=== PATIENT | male | born 2000 | race Caucasian/White ===

== ENCOUNTER 2022-12-25 17:47 | Emergency (ER) | payer BC, SELFPAY ==
--- NOTE | ~2022-12-25 | XR_ITS ---
EXAMINATION: XR FOOT, LEFT CLINICAL INFORMATION: Pain, injury. COMPARISON: None available. TECHNIQUE: AP, lateral, and oblique views of the left foot. FINDINGS: No acute fractures or subluxation. No significant soft tissue abnormality. No unexpected radiopaque foreign bodies. XR/XR foot LT min 3V IMPRESSION: No acute fractures or subluxation.
[2022-12-25 18:06] VITALS: BP 124/70; PULSE 56; RESP 18; TEMP 36.3; O2SAT 97; BMI 28.2
--- NOTE | 2022-12-25 18:06 | ED_ITS ---
HPI - Extremity Injury (Lower) General Chief Complaint: Extremity Injury, Lower Stated Complaint: L foot inj Time Seen by Provider: 12/25/22 19:05 Source: patient and RN notes reviewed Mode of arrival: ambulatory Limitations: no limitations History of Present Illness HPI Narrative: 22 year old male presenting with a chief complaint of left foot pain for the past 1.5 weeks after dropping a skim board on it. He denies difficulty with ambulation but endorses increased pain today while walking. He reports intermittent swelling to the left foot. He denies icing the injury or taking any Tylenol or Ibuprofen for the pain Related Data Allergies Allergy/AdvReac Type Severity Reaction Status Date / Time cat dander Allergy Itching Verified 12/25/22 18:05 Review of Systems Review of Systems: Yes all other systems are reviewed and are negative Constitutional: Constitutional: Reports no additional constitutional complaints Musculoskeletal: Musculoskeletal: Denies joint swelling and Denies limited range of motion Comments: Left foot pain PMFSH Social History Social History Alcohol intake: current Alcohol intake frequency: holidays/special occasions only Smoked in Last 30 Days: No Use of substances other than those prescribed or required for medical reasons: No Advance Directives: No Advance Directives Information Provided: Yes Physical Exam Vital Signs: Vital Signs: Last Vital Signs Temp 97.4 F 12/25/22 18:06 Pulse 56 12/25/22 18:06 Resp 18 12/25/22 18:06 BP 124/70 12/25/22 18:06 Pulse Ox 97 12/25/22 18:06 O2 Del Method Room Air 12/25/22 18:06 BMI result Body Mass Index 28.2 Const: General: healthy appearing, comfortable, no acute distress, alert and awake Nutritional Appearance: well nourished Orientation/consciousness: patient oriented x3 HEENT: Head: Yes normocephalic and Yes atraumatic Eyes: Eyelids: Yes eyelids normal Conjunctivae: conjunctivae normal Sclerae: sclerae normal Corneas: corneas normal Pupils: Equal, round and reactive pupils present EOM: EOMs intact bilaterally Neck: Neck: Yes full ROM Resp: Effort & Inspection: normal respiratory effort, able to speak in complete sentences and not labored Skin: General skin exam: no rashes or lesions noted and elasticity normal Neuro: General: patient oriented x3 Cranial nerves: Yes Equal, round and reactive pupils present and Yes Bilaterally intact EOM present Cognition (Neuro): normal cognition Extrem: Left lower extremity: normal to inspection, full ROM and foot (slight tenderness to palpation of the dorsal aspect of the left foot) Details: normal to inspection, tenderness, toes with normal ROM and no edema; no ecchymosis; no cyanosis and no edema Course Course Course Narrative: RME - 22 y/o male presents to the ER for evaluation of left foot pain that flared up today after an injury 1 week ago. he states he dropped a skim board on it but the pain was not severe at the time. +swelling, no wounds. ambulatory into triage Plan: x-ray foot Medical Decision Making Medical Decision Making [facility] Narrative: Patient had a minor injury to the dorsal surface left foot. X-ray shows no evidence of fracture, he will be treated symptomatically and is stable for discharge Differential Diagnosis Differential Diagnoses: The differential diagnosis associated with the presentation includes Foot fracture Ankle sprain hematoma Plantar fasciitis Contusion Independent Interpretation I performed an independent interpretation of an: Plain X-Ray (No obvious fracture) Radiology Impression Discussion of test interpretation with radiology: I have reviewed the radiologist's reading. Radiologist Impression: No fracture left foot Discharge Plan Discharge Clinical Impression: Contusion of foot, left Patient Disposition: Home, Self-Care Instructions: Foot Contusion (ED) Additional Instructions: Your x-ray did not show any evidence of fracture Use ibuprofen or Tylenol for any further pain Follow-up with your primary doctor
[2022-12-25] MEDS: Ibuprofen 600 MG TABLET PO (19:30)
== END 2022-12-25 20:19 | disposition home or self-care (01) ==
PROVIDERS: Emergency Provider Internal Medicine
DX: S90.32XA Contusion of left foot, initial encounter (principal); W20.8XXA Other cause of strike by thrown, projected or falling object, initial encounter; Y93.89 Activity, other specified; Y92.9 Unspecified place or not applicable; Y99.9 Unspecified external cause status
CPT/HCPCS: 73630; 99283